=== PATIENT | female | born 1940 ===

== ENCOUNTER 2020-11-12 05:20 | Day surgery (SDC) | payer OTHER ==
[~2020-11-12 05:20] MED LIST: COZAAR50 MG PO
== END 2020-11-12 11:52 | disposition home or self-care (01) ==
LOC: CIR.AMB 05:20
PROVIDERS: ATTEND Urology
DX: C67.2 Malignant neoplasm of lateral wall of bladder (principal); Z20.822 Contact with and (suspected) exposure to COVID-19